=== PATIENT | male | born 1965 | race Caucasian/White ===

== ENCOUNTER 2017-12-11 01:20 | Emergency (ER) | payer OTHER, BC ==
[~2017-12-11] VITALS: Ht 177.8 cm; Wt 108.9 kg
[~2017-12-11 01:20] MED LIST: ALBUTEROL SULF8.5 GM IH; LEVAQUIN750 MG PO; LORTAB 5-325 M1 EACH PO; MOTRIN800 MG PO; NORCO 5/3251 TABLET PO; PREDNISONE50 MG PO; TOPROL XL25 MG PO; VENTOLIN HFA18 GM IH; ZOFRAN4 MG PO
[2017-12-11] MEDS ORDERED: ULTRAM50 MG PO (01:57)
[2017-12-11] MEDS ORDERED: MOTRIN800 MG PO (01:57)
[2017-12-11 02:22] VITALS: BP 149/79
== END 2017-12-11 02:22 | disposition home or self-care (01) ==
LOC: EME 01:20
DX: S50.12XA Contusion of left forearm, initial encounter (principal); W31.9XXA Contact with unspecified machinery, initial encounter; Y99.0 Civilian activity done for income or pay; Z88.0 Allergy status to penicillin; Z88.5 Allergy status to narcotic agent
CPT/HCPCS: 73090; 99281; 99283